=== PATIENT | female | born 1955 | race Caucasian/White ===

== ENCOUNTER 2017-07-29 11:09 | Outpatient (CLI) | payer BC ==
--- NOTE | 2017-07-29 12:12 | RAD ---
LEFT HIP TWO VIEWS: History: Fall five weeks ago, pain. FINDINGS: Contour of the femoral head is maintained. Joint space is preserved. No fracture. IMPRESSION: No evidence of fracture. POS: [id number]
== END 2017-07-29 11:10 | disposition home or self-care (01) ==
LOC: SCSRAD 11:09
PROVIDERS: ATTEND Family Medicine
DX: R10.32 Left lower quadrant pain (principal)

== ENCOUNTER 2024-02-25 09:53 | Outpatient (CLI) | payer MEDICARE | END 2024-02-25 09:54 | disposition home or self-care (01) | LOC: RAD 09:53 | PROVIDERS: ATTEND Internal Medicine Critical Care Medicine | DX: R06.00 Dyspnea, unspecified (principal); I70.90 Unspecified atherosclerosis; J98.4 Other disorders of lung | CPT/HCPCS: 71046 ==